=== PATIENT | female | born 1940 | race Caucasian/White ===

== ENCOUNTER 2018-03-04 06:00 | Inpatient (IN) | payer OTHER ==
[~2018-03-04 06:00] MED LIST: CEFAZOLIN 1 GM/D5W 1 GM/50 ML BAG IVPB ONE; ROPIVICAINE 0.2%/MORPH PF/KETOROLAC - 51ML DISP.SYRINGE IA ONE; TRANEXAMIC ACID 1000 MG/10 ML VIAL IVPUSH ONE
[2018-03-04] MEDS ORDERED: PANTOPRAZOLE 40 MG TABLET (FP) ONE (06:39)
[2018-03-04] MEDS ORDERED: GABAPENTIN 300 MG CAPSULE (FP) ONE (06:40)
[2018-03-04] MEDS ORDERED: oxyCODONE HCL 10 MG SUSTAINED ACTING TABLET ONE (06:40)
[2018-03-04] MEDS ORDERED: CELECOXIB 200 MG CAPSULE ONE (06:41)
[2018-03-04] MEDS: CELECOXIB 200 MG CAPSULE PO ONE (07:00)
[2018-03-04] MEDS: oxyCODONE HCL 10 MG SUSTAINED ACTING TABLET PO ONE (07:00)
[2018-03-04] MEDS: GABAPENTIN 300 MG CAPSULE (FP) PO ONE (07:00)
[2018-03-04] MEDS: PANTOPRAZOLE 40 MG TABLET (FP) PO ONE (07:00)
[2018-03-04 07:09] VITALS: BMI 25.3
[2018-03-04] MEDS ORDERED: BUPIVACAINE HCL/PF 2.5 MG/ML - 30 ML VIAL IJ ONE (07:36)
[2018-03-04] MEDS ORDERED: BUPIVACAINE LIPOSOME/PF (EXPAREL) 266 MG/20 ML VIAL ONE (07:36)
[2018-03-04] MEDS ORDERED: MIDAZOLAM HCL 2 MG/2 ML SINGLE DOSE VIAL ONE ×2 (07:36→08:50)
--- NOTE | 2018-03-04 07:43 | HP ---
Admitting History and Physical - Admission Chief Complaint: left knee osteoarthritis x years History of Present Illness: 77 year old female presents regarding her left knee. Longstanding history of left knee osteoarthritis. Patient complains of pain, limited ROM, difficulty ambulating and difficulty with activities of daily living. Patient has failed conservative treatment measures including PO medication, activity modification, injections and exercise program. As patient has failed conservative treatment measures, patient wishes to proceed with surgical intervention - left total knee arthroplasty, MAKOplasty. History Source: Patient - Past Medical History Psych: Yes: Depression, Other (OCD) - Past Surgical History Additional Past Surgical History: See written history & physical - Advance Directives Advance Directives: Yes: Health Care Proxy - Smoking History Smoking history: Never smoked Have you smoked in the past 12 months: No - Alcohol/Substance Use Hx Alcohol Use: Yes (OCCASIONALLY) Home Medications - Allergies Allergies/Adverse Reactions: Allergies Allergy/AdvReac Type Severity Reaction Status Date / Time No Known Drug Allergies Allergy Verified 03/01/18 11:08 - Home Medications Home Medications: Ambulatory Orders Aripiprazole [Abilify] 5 mg PO DAILY 03/01/18 Aspirin [Aspirin EC] 81 mg PO DAILY 03/01/18 Celecoxib [Celebrex] 200 mg PO BID 03/01/18 Clomipramine HCl 50 mg PO BID 03/01/18 Multivit-Min/Iron/Folic/Lutein [Centrum Silver Women Tablet] 1 each PO DAILY 09/08 Review of Systems - Review of Systems Musculoskeletal: reports: Crepitus (left knee), Decreased ROM (left knee), Joint Pain (left knee), Joint Swelling (left knee) Physical Examination Vital Signs: Vital Signs Temperature 98.2 F 03/04/18 06:53 Pulse Rate 86 03/04/18 06:53 Respiratory Rate 03/04/18 06:53 Blood Pressure 114/68 03/04/18 06:53 O2 Sat by Pulse Oximetry (%) Constitutional: Yes: Well Nourished, No Distress Eyes: Yes: Conjunctiva Clear HENT: Yes: Atraumatic, Normocephalic Neck: Yes: Supple Cardiovascular: Yes: Regular Rate and Rhythm Respiratory: Yes: Regular Gastrointestinal: Yes: Soft ...Rectal Exam: Yes: Deferred Musculoskeletal: Yes: Joint Stiffness (left knee), Joint Swelling (left knee) Assessment/Plan 77 year old female presents regarding her left knee. Longstanding history of left knee osteoarthritis. Patient complains of pain, limited ROM, difficulty ambulating and difficulty with activities of daily living. Patient has failed conservative treatment measures including PO medication, activity modification, injections and exercise program. As patient has failed conservative treatment measures, patient wishes to proceed with surgical intervention. Pros, cons, risks, benefits and alternatives of a left total knee arthroplasty, MAKOplasty was discussed with the patient at length. Patient confirms their understanding. Patient consents to proceed with a left total knee arthroplasty, MAKOplasty.
[2018-03-04] MEDS ORDERED: PROPOFOL 20 ML ONE (08:25)
[2018-03-04] MEDS ORDERED: SUCCINYLCHOLINE CHLORIDE 200 MG/10 ML VIAL ONE (08:25)
[2018-03-04] MEDS ORDERED: DEXAMETHASONE SOD PHOSPHATE 4 MG/1 ML VIAL ONE (08:45)
[2018-03-04] MEDS ORDERED: ONDANSETRON 4 MG/2 ML VIAL ONE (08:45)
[2018-03-04] MEDS ORDERED: ONDANSETRON 4 MG/2 ML VIAL IVPUSH PRN ×2 (09:35→12:10)
[2018-03-04] MEDS ORDERED: oxyCODONE HCL 5 MG TABLET PO PRN (09:37)
[2018-03-04] MEDS ORDERED: TRANEXAMIC ACID 1000 MG/10 ML VIAL IVPB ONE ×2 (09:52→11:32)
[2018-03-04] MEDS ORDERED: VANCOMYCIN 1,000 MG VIAL (RESTRICTED TO ID ONLY) IVPB ONE ×2 (09:53→11:32)
[2018-03-04] MEDS ORDERED: ROPIVICAINE 0.2%/MORPH PF/KETOROLAC - 51ML DISP.SYRINGE IA ONE (11:31)
[2018-03-04] MEDS ORDERED: TRANEXAMIC ACID 1000 MG/10 ML VIAL ONE (11:59)
[2018-03-04] MEDS ORDERED: MAGNESIUM HYDROX 2400MG/30ML ORAL SUSPENSION 30 ML CUP PO PRN (12:10)
[2018-03-04] MEDS ORDERED: MAG HYDROX/AL HYDROX/SIMETH 30 ML UNIT-DOSE CUP PO PRN (12:10)
[2018-03-04] MEDS ORDERED: LACTATED RINGERS SOLUTION 1,000 ML IV SCH (12:15)
--- NOTE | 2018-03-04 12:16 | OP ---
Operative Note - Note: Operative Date: 03/04/18 Pre-Operative Diagnosis: left knee OA Operation: left TKA with ARTEMIO navigation Post-Operative Diagnosis: Same as Pre-op Surgeon: Jovon Geller Furnace Checker: Tess Pan Anesthesia: Spinal Estimated Blood Loss (mls): 150
[2018-03-04] MEDS ORDERED: ACETAMINOPHEN 1000 MG/100 ML VIAL (NON FORMULARY) IVPB ONE ×2 (12:35→13:00)
[2018-03-04] MEDS ORDERED: traMADol HCL 50 MG TABLET PO ONE (12:50)
[2018-03-04] MEDS ORDERED: KETOROLAC TROMETHAMINE 15 MG/ML VIAL IVPUSH ONE (12:53)
[2018-03-04] MEDS ORDERED: ONDANSETRON 4 MG/2 ML VIAL IVPUSH ONE (12:55)
[2018-03-04] MEDS ORDERED: oxyCODONE HCL 5 MG TABLET PO ONE (13:43)
--- NOTE | 2018-03-04 17:19 | OP ---
DATE OF OPERATION: 03/04/2018 PREOPERATIVE DIAGNOSIS: Left knee osteoarthritis. POSTOPERATIVE DIAGNOSIS: Left knee osteoarthritis. PROCEDURE: Left total knee replacement with Makoplasty robotic navigation. ATTENDING: Marcelo Person M.D. CIRCUIT DESIGNER: Jamin Chin ANESTHESIA: Spinal plus sedation. ESTIMATED BLOOD LOSS: 150 mL. COMPLICATIONS: None. DISPOSITION: The patient was transferred to the PACU in stable condition. IMPLANTS USED: Hope Triathlon size 3 femoral and tibial components, a 29-mm patellar component, 13-mm total stabilized polyethylene insert. INDICATION: This is a 77-year-old female who presents to the office complaining of severe left knee pain. She was seen and examined by Dr. Person and diagnosed with severe left knee osteoarthritis. The patient was initially treated conservatively with injection of medications and physical therapy, but continued to have severe left knee pain and ambulatory dysfunction. She was therefore indicated for a left total knee replacement with Makoplasty robotic navigation. The risks, benefits, and alternatives to the procedure were explained to the patient in great detail, and she elected to proceed with the surgery. On the day of surgery, the patient was taken to the operating room and placed on the OR table. Spinal anesthesia was administered by the anesthesiologist. The patient was then positioned supine on the table and all bony prominences were padded. The left knee was then prepped and draped in the usual sterile fashion and intravenous antibiotics were given for infection prophylaxis. A surgical timeout was then performed with the team, and the patient's identity, procedure, side, site, availability of implants, and the administration of antibiotics was confirmed. With the knee flexed, the midline incision was made and carried down through the subcutaneous fat to the underlying retinaculum. The medial parapatellar arthrotomy was performed. This was followed by a subperiosteal dissection of the tissue off the proximal medial tibia. A portion of the fat pad was removed from under the patellar tendon, and a small portion of the fat was excised off the distal supracondylar femur. Electrocautery and an [employer] bipolar sealing device were used to achieve hemostasis. The knee was then flexed further, and the anterior horn of the lateral meniscus was released from the midline. Next, the anterior and posterior cruciate ligaments were transected. Osteophytes were then removed from both the femur and tibia. Grade 4 changes were noted diffusely throughout the knee. Femoral and tibial checkpoints were then placed in the appropriate location using a mallet. Two parallel bicortical self-drilling pins were placed in the diaphysis after making stab incisions and bluntly dissecting down to bone. Two pins were then placed in the distal supracondylar femur. The [employer] navigation arrays were then attached to both the femoral and tibial pins, and the lower extremity was then registered to the robotic navigation device using various joint movements, as well as inputting several dozen reference points. The knee was then taken through a full range of motion with a corrective force applied. Alignment and varus/valgus as well as flexion/extension and soft tissue balance was measured in various positions. The navigation device showed a numerical and graphic representation of the soft tissue balance. The components were repositioned virtually using the software until optimal soft tissue balance was achieved on screen. Once this was accomplished, a final plan was saved and sent to the robot. Self-retaining retractors were then placed at the joint line for exposure and protection of the collateral ligaments. The robot was brought into the sterile field and registered with the navigation device. The robotic arm with attached oscillating sawblade was then used to perform femoral and tibial bone cuts as per saved software plan. The femoral box cut was made using the appropriately sized manual cutting guide. The knee was then irrigated. Trial components were placed, and the knee was taken through a full range of motion to assess soft tissue balance and alignment. The range of motion was found to be excellent, and the soft tissue balance was optimal and according to plan. The knee was then put into extension and the patella everted. The synovium around the patella was circumscribed with electrocautery. The caliper was used to measure the patella thickness and the saw was used to resect the patella at the chondro-osseous junction. The cut surface was then sized and drilled for the appropriate patellar button with care taken to medialize it. The trial patella was then placed, and the knee was again taken through a full range of motion. The knee was found to have both good balance and good patellar tracking. All the components were removed except the tibial baseplate. The appropriate instrumentation was used to drill and punch the proximal tibia for the keel of the final component. All bony surfaces were then cleaned with pulsatile lavage and dried. Bone cement was prepared on the back table in the usual fashion and then the femoral, tibial, and patellar components were then cemented and impacted into place and found to have proper fit and alignment. Extruded cement was removed. A trial polyethylene was placed, and the knee was placed into extension with axial force applied as the cement hardened. Once this had occurred, the knee was again taken through full range of motion to assess stability, balance, and patellar tracking. This was found to be optimal, and the trial polyethylene was exchanged for the appropriately sized real implant. The wound was then thoroughly irrigated with normal saline. A 3-minute dilute Betadine lavage was performed. The knee was again irrigated using a pulsatile lavage device. A periarticular injection was used to locally infiltrate the capsular tissues surrounding the implant and prosthesis. Number 1 Polysorb and number 0 V-Loc 180 barbed sutures were used to close the arthrotomy. Number 1 Polysorb and 2-0 V-Loc 90 sutures were used in subcutaneous tissues. 2-0 undyed Vicryl and Dermabond skin adhesive was used to close the stab incision made for the navigation pins. The skin was closed using both 3-0 V-Loc 90 suture in a running subcuticular fashion and Dermabond skin adhesive. Once this was completed, a sterile Aquacel dressing and compressive Douglas wrap was applied. The patient was then awakened and taken to the PACU in stable condition. MARCELO PERSON M.D. SAUL/[id number]
[2018-03-04] MEDS: ACETAMINOPHEN 325 MG TABLET (FP) PO SCH (18:20)
[2018-03-04] MEDS: oxyCODONE HCL 5 MG TABLET PO PRN (18:20)
[2018-03-04] MEDS: KETOROLAC TROMETHAMINE 30 MG/1 ML VIAL IVPUSH SCH ×2 (18:21→18:59)
[2018-03-04] MEDS: CEFAZOLIN 1 GM/D5W 1 GM/50 ML BAG IVPB SCH (18:21)
[2018-03-04] MEDS: ARIPiprazole 5 MG TABLET (FP) PO SCH (18:22)
[2018-03-04] MEDS: traMADol HCL 50 MG TABLET PO SCH (18:58)
[2018-03-04] MEDS ORDERED: DEXAMETHASONE SOD PHOSPHATE 10 MG/1 ML VIAL IVPB ONE (20:00)
[2018-03-04] MEDS: CELECOXIB 200 MG CAPSULE PO SCH (21:29)
[2018-03-04] MEDS: GABAPENTIN 300 MG CAPSULE (FP) PO SCH (21:29)
[2018-03-04] MEDS: ASCORBIC ACID 500 MG TABLET (FP) PO SCH (21:29)
[2018-03-04] MEDS: oxyCODONE HCL 10 MG SUSTAINED ACTING TABLET PO SCH (21:30)
[2018-03-04] MEDS: SENNOSIDES/DOCUSATE COMBO (SENNA PLUS) TABLET (UD) PO SCH (21:30)
[2018-03-05] MEDS: CEFAZOLIN 1 GM/D5W 1 GM/50 ML BAG IVPB SCH (01:23)
[2018-03-05] MEDS: traMADol HCL 50 MG TABLET PO SCH ×6 (01:23→19:31)
[2018-03-05] MEDS: ACETAMINOPHEN 325 MG TABLET (FP) PO SCH ×5 (01:24→18:26)
[2018-03-05] MEDS: KETOROLAC TROMETHAMINE 30 MG/1 ML VIAL IVPUSH SCH ×2 (01:24→06:35)
[2018-03-05 07:55] LABS: HEMATOCRIT 31.1 % (32.4-45.2); HEMOGLOBIN 10.5 GM/dl (10.7-15.3); MCH 29.7 pg (25.7-33.7); MCHC 33.8 g/dl (32.0-36.0); MEAN CELL VOLUME 87.9 fl (80-96); MEAN PLT VOLUME 9.3 fl (7.5-11.1); PLATELET COUNT 219 K/MM3 (134-434); RBC 3.54 M/mm3 (3.60-5.2); WHITE BLOOD COUNT 9.8 K/mm3 (4.0-10.8)
[2018-03-05] MEDS: ASPIRIN 325 MG TABLET PO SCH (08:26)
[2018-03-05] MEDS ORDERED: PT OWN MED DRAWER 7, Y5N ONE ×4 (09:24→21:28)
[2018-03-05] MEDS: ARIPiprazole 5 MG TABLET (FP) PO SCH (09:30)
[2018-03-05] MEDS: MULTIVITAMINS (DAILY MVI) TABLET (FP) PO SCH (09:30)
[2018-03-05] MEDS: GABAPENTIN 300 MG CAPSULE (FP) PO SCH ×2 (09:31→21:26)
[2018-03-05] MEDS: oxyCODONE HCL 10 MG SUSTAINED ACTING TABLET PO SCH ×3 (09:31→21:26)
[2018-03-05] MEDS: ASCORBIC ACID 500 MG TABLET (FP) PO SCH ×2 (09:31→21:26)
[2018-03-05] MEDS: CELECOXIB 200 MG CAPSULE PO SCH ×2 (09:32→21:26)
[2018-03-05] MEDS: SENNOSIDES/DOCUSATE COMBO (SENNA PLUS) TABLET (UD) PO SCH ×2 (09:35→21:25)
[2018-03-05] MEDS: PANTOPRAZOLE 40 MG TABLET (FP) PO SCH (09:35)
[2018-03-05 09:43] LABS: ANION GAP 9 (8-16); BLOOD UREA NITROGEN 37 mg/dL (7-18); CHLORIDE 108 mmol/L (98-107); CO2 26 mmol/L (21-32); CREATININE 0.8 mg/dL (0.55-1.02); GLUCOSE,RANDOM 138 mg/dL (74-106); POTASSIUM 4.5 mmol/L (3.5-5.1); SODIUM 143 mmol/L (136-145)
[2018-03-05] MEDS: PATIENT'S OWN MEDICATION (NON-FORMULARY) (Clomipramine Hcl [Clomipramine Hcl] 50 MG) PO SCH ×2 (13:00→21:35)
[2018-03-05] MEDS: GABAPENTIN 300 MG CAPSULE (FP) PO ONE (19:29)
[2018-03-05] MEDS: LACTATED RINGERS SOLUTION 1,000 ML IV SCH ×2 (19:30→19:31)
[2018-03-05] MEDS: oxyCODONE HCL 10 MG SUSTAINED ACTING TABLET PO ONE (19:30)
[2018-03-05] MEDS: PANTOPRAZOLE 40 MG TABLET (FP) PO ONE (19:30)
[2018-03-05] MEDS: CELECOXIB 200 MG CAPSULE PO ONE (19:30)
[2018-03-05] MEDS: oxyCODONE HCL 5 MG TABLET PO PRN (21:25)
--- NOTE | 2018-03-05 23:54 | PN ---
Progress Note (short form) - Note Progress Note: Pt seen and examined. Comfortable. AVSS Selected Entries 03/05/18 03/05/18 20:28 21:00 Temperature 97.7 F Pulse Rate 72 Respiratory 16 Rate Respiratory Normal Depth Respiratory Non-Labored Effort Blood Pressure 109/56 O2 Sat by Pulse 97 Oximetry (%) Laboratory Tests 03/05/18 03/05/18 07:10 07:10 WBC 9.8 Hgb 10.5 L Hct 31.1 L Plt Count 219 Sodium 143 Potassium 4.5 Chloride 108 H Carbon Dioxide 26 Anion Gap 9 BUN 37 H Creatinine 0.8 Random Glucose 138 H Calcium 8.0 L Gen: NAD RLE: c/d/i, NVID A/P 77yo female POD#1 s/p CRPP right hip fx 1. PT/OOB - WBAT RLE 2. D/C planning to rehab
[2018-03-06] MEDS: ACETAMINOPHEN 325 MG TABLET (FP) PO SCH ×2 (00:07→06:12)
[2018-03-06] MEDS: traMADol HCL 50 MG TABLET PO SCH ×2 (00:08→06:12)
[2018-03-06 06:25] VITALS: BP 101/41; PULSE 84; TEMP 97.8
--- NOTE | 2018-03-06 08:14 | DS ---
Physical Examination Vital Signs: Vital Signs Temperature 97.8 F 03/06/18 06:00 Pulse Rate 84 03/06/18 06:00 Respiratory Rate 16 03/06/18 07:51 Blood Pressure 101/41 03/06/18 06:00 O2 Sat by Pulse Oximetry (%) 97 03/06/18 07:51 Labs: CBC, BMP 03/05/18 07:10 Discharge Summary Reason For Visit: LEFT KNEE OSTEOARTHRITIS Current Active Problems Osteoarthritis of left knee (Acute) Procedures: Principal: left ARTEMIO TKA Hospital Course: Admitted for elective surgery. Procedure performed without complications. Pt received postoperative antibiotic prophylaxis and DVT ppx. Ambulated with physical therapy. Stable for discharge home with outpatient followup. Condition: Stable - Instructions Diet, Activity, Other Instructions: Dr. Geller - Knee Replacement Instructions Keep the Aquacel dressing on until removed by Dr. Geller in 10-14 days - it is antibacterial and waterproof and you can shower with it on. Call the office for a follow-up appointment with Dr. Geller in 10-14 days. Take one Aspirin 325mg daily for 6 weeks to prevent blood clots in your legs. After 6 weeks resume taking your preop dose of 81mg daily. Take one Pantoprazole 40mg daily for 6 weeks to protect against heartburn and ulcers. Resuming taking Celebrex 200mg twice daily for 30 days to reduce swelling and inflammation. Take Cephalexin (antibiotic) 3x/day for 10 days to help prevent skin infection. Take a multivitamin, stool softener, and extra vitamin C supplement daily. For pain: *Mild pain (1-3/10): Take 1 Tramadol tablet every 4 hours as needed. Moderate pain (4-6/10): Take 1 Tramadol tablet and 1 Percocet tablet every 4 hours as needed. Severe pain (7-10/10): Take 1 Tramadol tablet and 2 Percocet tablets every 4 hours as needed. Activity: You can put as much weight on the operative leg as you want. Right after you get home, there will be a physical therapist coming to your house to help you walk around and bend/straighten your knee. After your follow-up appointment, you will be sent for more intensive outpatient physical therapy which will include machines and equipment that the home therapist cannot bring to your house. Always use a walker or cane for balance and to prevent falls. Expect to see swelling/bruising from the operative site all the way down to your toes. Wear the compression stocking on the operative side during the day to minimize how much swelling there is in your foot/ankle. Don't wear the stocking at night. You don't have to wear a stocking on the other side. Disposition: [facility]/HOME HEALTH CARE - Home Medications Comprehensive Discharge Medication List: Ambulatory Orders Aripiprazole [Abilify] 5 mg PO DAILY 03/01/18 Celecoxib [Celebrex] 200 mg PO BID 03/01/18 Clomipramine HCl 50 mg PO BID 03/01/18 Multivit-Min/Iron/Folic/Lutein [Centrum Silver Women Tablet] 1 each PO DAILY 09/08 Ascorbic Acid [Vitamin C -] 500 mg PO BID tablet 03/06/18 Aspirin [ASA -] 325 mg PO DAILY@0800 tablet 03/06/18 Cephalexin Monohydrate [Keflex -] 500 mg PO TID #30 capsule 03/06/18 Multivitamins [Multivit ([facility] Formulary)] 1 tab PO DAILY tab 03/06/18 Oxycodone HCl/Acetaminophen [Percocet 5-325 mg Tablet] 1 - 2 tab PO Q4H PRN #60 tablet MDD 8 03/06/18 Pantoprazole Sodium [Protonix -] 40 mg PO DAILY #40 tablet.ec 03/06/18 Sennosides/Docusate Sodium [Pericolace -] 1 tablet PO BID tablet 03/06/18 traMADol HCL [Ultram -] 50 mg PO Q4H PRN #90 tablet MDD 6 03/06/18
[2018-03-06 08:38] LABS: HEMOGLOBIN 9.4 GM/dl (10.7-15.3); MCH 29.8 pg (25.7-33.7); MCHC 33.5 g/dl (32.0-36.0); MEAN CELL VOLUME 88.8 fl (80-96); MEAN PLT VOLUME 9.7 fl (7.5-11.1); PLATELET COUNT 178 K/MM3 (134-434); RBC 3.16 M/mm3 (3.60-5.2); RDW 13.5 % (11.6-15.6); WHITE BLOOD COUNT 5.6 K/mm3 (4.0-10.8)
[2018-03-06] MEDS: ASPIRIN 325 MG TABLET PO SCH (08:38)
[2018-03-06] MEDS: GABAPENTIN 300 MG CAPSULE (FP) PO SCH (09:13)
[2018-03-06] MEDS: MULTIVITAMINS (DAILY MVI) TABLET (FP) PO SCH (09:13)
[2018-03-06] MEDS: ASCORBIC ACID 500 MG TABLET (FP) PO SCH (09:13)
[2018-03-06] MEDS: SENNOSIDES/DOCUSATE COMBO (SENNA PLUS) TABLET (UD) PO SCH (09:13)
[2018-03-06] MEDS: PANTOPRAZOLE 40 MG TABLET (FP) PO SCH (09:13)
[2018-03-06] MEDS: oxyCODONE HCL 10 MG SUSTAINED ACTING TABLET PO SCH (09:14)
[2018-03-06] MEDS: CELECOXIB 200 MG CAPSULE PO SCH (09:14)
[2018-03-06] MEDS: PATIENT'S OWN MEDICATION (NON-FORMULARY) (Clomipramine Hcl [Clomipramine Hcl] 50 MG) PO SCH (09:15)
--- NOTE | 2018-03-06 14:17 | PATH ---
Surgical Pathology Report Patient Name: LEVON BENAVIDES Med. Rec. #: [id number] /Age/Gender: 1940 (Age: 77) / F Account: [id number] Location: [facility] MED-SURG Taken: 03/04/2018 Received: 03/04/2018 Reported: 03/06/2018 Physicians: Jovon Geller M.D. Specimen(s) Received LEFT KNEE BONE Clinical History Osteoarthritis left knee Final Diagnosis KNEE BONE, LEFT, TOTAL KNEE REPLACEMENT: DEGENERATIVE JOINT DISEASE. Electronically Signed Chantel Rivas M.D. Gross Description received in formalin labeled "left knee bone," is a 12.0 x 9.5 x 2.5 cm aggregate of multiple portions of bone and soft tissue. The tibial plateau measures 7.2 x 5.5 x 1.7 cm. There is a 3.1 cm greatest dimension area of eburnation present. The remaining articular surfaces are vaz-yellow and diffusely granular. The underlying trabecular bone is yellow and hard. Square [employer] Caller sections are submitted in one cassette, following decalcification. /03/05/2018 [facility]03/05/2018
== END 2018-03-06 11:40 | disposition home health service (06) | DRG 470 ==
LOC: FM/S 06:00
PROVIDERS: ADMIT Student in an Organized Health Care Education/Training Program; ATTEND Student in an Organized Health Care Education/Training Program
PROC: 8E0Y0CZ Robotic Assisted Procedure of Lower Extremity, Open Approach (ICD-10-PCS; 2018-03-04)
PROC: 0SRD0J9 Replacement of Left Knee Joint with Synthetic Substitute, Cemented, Open Approach (ICD-10-PCS; principal; 2018-03-04 09:16)
DX: M17.12 Unilateral primary osteoarthritis, left knee (principal)
CPT/HCPCS: 36415; 73560-TC-LT-FY; 80048; 85027; 88304-TC; 88311-TC; 94010; 94760; 97116-GP; 97162-GP; J0131; J1100